=== PATIENT | male | born 1965 | race Caucasian/White ===

== ENCOUNTER 2024-05-16 01:11 | Day surgery (SDC) | payer OTHER, SELFPAY ==
[2024-05-13 12:51] VITALS: BMI 29.0
--- NOTE | 2024-05-13 12:55 | PC.NURSE ---
Report to the Outpatient Waiting Room, entrance under the green pavilion located off [facility], at time _0600_ on date __05/16/24_. Planned Procedure Time: _0730_. Time changes happen often and if your time is changed the preop area will call you the afternoon before. - You and your visitor will be asked to self-screen and do not enter if you have any COVID symptoms. - A mask is optional within the hospital at this time. Patients may have clear liquids (water, carbonated beverages, clear teas, apple juice) until 3 hours prior to surgery with a maximum of 20 ounces. - No food from midnight until time of surgery - Infants may have breast milk until 4 hours before surgery, formula 6 hours prior to surgery. - Children will be allowed to drink immediately following surgery. If applicable, please bring a bottle or sippy cup to assist with drinking. Juice, water, soda, and popsicles are readily available. For infants on formula, please bring formula the day of surgery. Pacifiers are allowed. Take the following medications with a SIP of water the morning of surgery: ____NONE DO NOT STOP ANY OF YOUR OTHER PRESCRIPTION MEDICATIONS PRIOR TO SURGERY ?EXCEPT THE FOLLOWING Medications to discontinue per physician MAGNESIUM Date to take last dose 05/13/24 Please no make-up, nail iraqi, hairspray, perfume, deodorant, or body powder the day of surgery. No jewelry (including any body piercings) or valuables the day of surgery, leave them at home. Please take a shower or bath the night before, or the morning of, surgery with an antibacterial soap. Wear comfortable, loose fitting clothing. Children are encouraged to wear pajamas. - Jewelry must be removed prior to entering the operating room. Rings and piercings that are not removed may be cut off. - The hospital will not accept responsibility for valuables. - Please leave all valuables, including medications, at home the day of surgery. If you are going home after surgery, a licensed furniture mover driver must drive you home. - NO public transportation without another adult if you receive anesthesia. - We recommend that an adult stay with you for 24 hours following discharge. - We also recommend that you do not drive, make important decision, drink alcoholic beverages, or take any drugs that were not prescribed by your health care provider for at least 24 hours after your discharge time. For Pediatric surgeries, we recommend two adults accompany the child home. Follow any additional instructions given to you from your surgeon. If you or anyone in your household have experienced Covid symptoms in the past week, please notify your surgeon or the nurse liaison at the phone number below for possible testing. Telephone instructions given to _PATIENT_and asked if any additional questions and then verbalized understanding. Patient advised to call surgeon office or pre surgery nurse liaison [phone] if any additional questions.
[2024-05-16] VITALS (12 sets, daily range): BP systolic 116–145; BP diastolic 77–93; PULSE 57–75; RESP 12–24; TEMP 35.6–36.5; O2SAT 95–100; BMI 30.9
--- NOTE | 2024-05-16 05:59 | ECG_ITS ---
Test Date: 2024-05-16 06:52:16 Measurements Intervals Java Rate: 64 P: 33 AR: 184 QRS: 23 QRSD: 96 T: 30 QT: 412 QTc: 426 Interpretive Statements SINUS RHYTHM WITH OCCASIONAL VENTRICULAR PREMATURE COMPLEXES No previous ECG available for comparison Electronically Signed On 05-16-2024 14:46:22 CDT by Claudia Quach M.D.
[2024-05-16 06:39] LABS: Urine Cotinine NEGATIVE
[2024-05-16 06:41] LABS: Hematocrit 44.2 % (42.0-52.0); Hemoglobin 15.5 g/dL (14.0-18.0)
--- NOTE | 2024-05-16 07:15 | WPDHPUPDATE1 ---
History and Physical Update Update Date/Time: 05/16/24 07:15 History and Physical has been reviewed, including an updated exam of the patient. There are NO changes in the patient's condition. Risks, benefits, and alternatives have been discussed and questions answered. Patient agrees to proceed with procedure.
--- NOTE | 2024-05-16 07:15 | W.PM.PROC2 ---
Procedure Note - Detailed Date of Procedure 05/16/24 Pre-op Diagnosis skin laxity Post-op Diagnosis Same Procedure Performed 1. Chest suction lipectomy 2. Belt lipectomy with suction lipectomy Surgeon Nomi Suárez MD Anesthesia General Findings Tissue removed: 699.3 grams Lipoaspirate: 4,000 cc Description of Procedure He is here today for the above procedures. Previously and again today the risks, benefits, alternatives were discussed in extensive detail. I wanted them to be very realistic about the risks involved as well as expectations. We discussed goals to make sure we were i full agreement. We discussed aftercare and what to monitor for. I was very upfront about the risks of wound breakdown leading to loss of skin, open wounds, and need for additional procedures with permanent abdominal deformity. We discussed DVT/PE risks and management. Made sure answered all of their questions to their satisfaction today and consent was obtained. They were marked in the preoperative holding area with their verification. The patient was taken to the operating room. Anesthesia was provided by anesthesiology. A Tejeda catheter was started. Placed prone on the operating room table with care taken to protect from injury. Posterior Prepped and draped in a standard sterile fashion. A surgical time-out was taken. Stab incisions were made and tumescent solution was infiltrated. Once adequate time was allowed for hemostasis a 5mm basket and 3mm multihole cannula were utilized to complete suction lipectomy based on S.A.F.E. technique in multiple planes and passes. Suction lipectomy continued to result based on pre-operative planning, intra-operative observation, and rolling pinch test which were in full agreement. A 10 blade was used to make the upper incision and dissection was continued inferior elevating what we necessary for closure. This was closed with 3 point suture with 2-0 Vicryl followed 2-0 PDO strattafix, 3-0 stratafix, running subcuticular 4-0 Monocryl, and tissue glue. Laterally derrell were placed for turning. Access sites closed with 3-0 Nylon. Patient was then placed supine with care taken to protect from injury. Anterior A thorough abdominal examination was completed. Stab incisions were made and tumescent solution infiltrated. Stab incisions were made at planned lower abdominal scar, umbilicus, and areola. Tumescent solution was infiltrated. Once adequate time was allowed for hemostasis a 5mm basket and 3mm multi hole cannula were utilized to complete suction lipectomy based on S.A.F.E. technique in multiple planes and passes. Suction lipectomy continued to result based on pre-operative planning, intra-operative observation, and rolling pinch test which were in full agreement. This was of chest and abdomen. A 10 blade was used to make the lower incision. I continued dissection down to the level of fascia. Elevated just what was necessary for approriate excision. I verified upper skin flap would reach the lower markings without tension and a 10 blade used to make the upper incision. 15 Melvin drain was placed. I then approximated using a 3 point suture with 2-0 Vicryl followed by 2-0 PDO Stratafix, 3-0 Stratafix ,running subcuticular 4-0 Monocryl, and tissue glue. Access sites closed with 3-0 Nylon Fluffs and an abdominal binder and Abhishek wrap were placed. [place] and taken to the PACU without difficulty. All instrument and sponge counts were correct at the end of the case. Estimated Blood Loss 75 Drains Yes (15 Melvin) Packing No Pathology None sent Complications No immediate complications Condition Stable Disposition PACU
--- NOTE | 2024-05-16 07:21 | P.PNAN_ITS ---
Anes - Initial Pre Proc Eval Procedure: Operation Date: 05/16/24 07:30 Proposed Procedures p Belt Lipectomy with Liposuction - Nomi Suárez MD s Bilateral Chest Liposuction - Nomi Suárez MD Date/Time: 05/16/24 07:21 Surgeon: Nomi Suárez MD Pre Op Diagnosis: skin laxity Patient Data Age: 58 Gender: M Height: 1.75 m Weight: 89 kg Allergies Allergy/AdvReac Type Severity Reaction Status Date / Time No Known Allergies Allergy Verified 05/16/24 06:18 Home Medications Medication Instructions Recorded Confirmed Type magnesium 250 mg tablet 250 mg PO DAILY 05/13/24 05/13/24 History Laboratory Tests 05/16/24 06:13 Hgb 15.5 g/dL (14.0-18.0) Hct 44.2 % (42.0-52.0) Cotinine Negative Patient hx anesthesia problems: post op nausea/vomiting (scopolamine patch applied) Family hx anesthesia problems: none Results Review: All pre-operative results and documents have been reviewed as part of the pre- operative evaluation. [facility] Social History Social History Years smoked: 15 Smoking status: Current every day smoker Tobacco type: cigars Additional smoking assessment comments: 6 WEEKS AGO LAST CIGAR Alcohol intake: current Drinks per week: 6 Substance use: never Living arrangements: with family Anes - Eval Final PreProcedure Day of Procedure 05/16/24 07:21 Patient weight: normal Heart: regular rate and rhythm Lungs: clear to auscultation Airway: Mallampati scale class II Neurological: alert and oriented Last oral intake: >/= 8 hours ASA classification: II Emergent: no Anesthetic plan: proceed Anesthesia type and monitoring: general ETT and standard monitoring Results Review: All pre-operative results and documents have been reviewed as part of the pre- operative evaluation. Informed Consent: The patient's anesthetic plan and its attendant risks and benefits were discussed with the patient/family/POA. Questions were solicited and answers provided to the satisfaction of the patient/family/POA.
[2024-05-16] MEDS: SCOPOLAMINE 1 MG PATCH 1 PATCH TRANSDERM (07:22)
[2024-05-16] MEDS: ceFAZolin 2 GM/D5W 50 ML 2 GM/50 ML BAG IVPB (07:22)
[2024-05-16] MEDS: LACTATED RINGERS 1,000 ML 30 ML IV CONT ×2 (07:22→12:05)
[2024-05-16] MEDS: TRANEXAMIC ACID 1,000MG/ISO100 1,000 MG/100 ML BAG 200 MG IVPB (07:40)
[2024-05-16] MEDS: LACTATED RINGERS IRRIG 1,000 ML, LIDOCAINE HCL 1% LOCAL INJ 50 ML, EPINEPHrine HCL INJ ... INFILTRATE (08:03)
[2024-05-16] MEDS: BUPIVACAINE/EPINEPHRINE 0.5% 50 ML VIAL 60 ML INFILTRATE (08:42)
[2024-05-16] MEDS: diphenhydrAMINE HCl INJ 50 MG/ML VIAL 12.5 MG IV PUSH ×2 (12:44→12:49)
[2024-05-16] MEDS: fentaNYL CITRATE INJ (*CRX) 100 MCG/2 ML VIAL 25 MCG IV PUSH ×2 (13:05→13:10)
[2024-05-16] MEDS: oxyCODONE HCL (*CRX) 5 MG TAB IR PO (14:11)
== END 2024-05-16 15:20 | disposition home or self-care (01) ==
PROVIDERS: Anesthesiology; Visit Provider Surgery Plastic and Reconstructive Surgery
PROC: (CPT 15830; principal; 2024-05-16 07:30)
PROC: (CPT 15877; 2024-05-16 07:30)
DX: Z41.1 Encounter for cosmetic surgery (principal); L57.4 Cutis laxa senilis; I10 Essential (primary) hypertension; F17.290 Nicotine dependence, other tobacco product, uncomplicated; Z98.890 Other specified postprocedural states
CPT/HCPCS: 15877; 15830; 15847; 36415; 80307; 85014; 85018; 93005; A9270; J0171; J0690; J1100; J1170; J1200; J1596; J2250; J2405; J2704; J2710; J3010; J7120